=== PATIENT | female | born 1995 ===

== ENCOUNTER 2016-11-05 23:12 | Emergency (ER) | payer OTHER ==
[2016-11-06 01:22] LABS: HCG,QUALITATIVE URINE POSITIVE
[2016-11-06] MEDS ORDERED: DIPHENHYDRAMINE HCL 50 MG/1 ML VIAL ONE (01:51)
[2016-11-06] MEDS ORDERED: ACETAMINOPHEN 325 MG TABLET ONE (01:51)
[2016-11-06] MEDS ORDERED: DEXAMETHASONE SOD PHOS 10 MG/1 ML VIAL ONE (01:51)
[2016-11-06] MEDS ORDERED: PROCHLORPERAZINE 5 MG/ML 2 ML VIAL ONE (01:51)
== END 2016-11-06 03:56 | disposition home or self-care (01) ==
LOC: ED 23:12
DX: O26.891 Other specified pregnancy related conditions, first trimester (principal); R51 Headache; O99.411 Diseases of the circulatory system complicating pregnancy, first trimester; R00.0 Tachycardia, unspecified; O21.0 Mild hyperemesis gravidarum; Z3A.00 Weeks of gestation of pregnancy not specified
CPT/HCPCS: 81025; 96375 ×2; 99283 ×2; 96374; 96361 ×2; J1200; J0780; J1100; A9270